=== PATIENT | female | born 1990 | race Two or more races ===

== ENCOUNTER 2017-06-15 09:34 | Emergency (ER) | payer OTHER ==
[2017-06-15 09:38] VITALS: BP 121/66; PULSE 85; TEMP 98; BMI 35.4
--- NOTE | 2017-06-15 10:42 | PDOC ---
History of Present Illness - General Chief Complaint: Pain Stated Complaint: SWOLLEN ANKLE Time Seen by Provider: 06/15/17 09:47 History Source: Patient Exam Limitations: No Limitations - History of Present Illness Initial Comments: 06/15/17 10:39 CHIEF COMPLAINT: Pain and swelling to plantar surface of left foot HISTORY OF PRESENT ILLNESS: Patient is a 26-year-old obese female, presents for evaluation of pain to plantar surface, near the heel of the left foot. Patient reports recently she started working out again. Noticeable swelling noted to plantar surface. Severity: Yes: moderate Lower Extremity Pain Location: left: foot Method of Injury: Yes: unknown Modifying Factors: improves with: cold therapy Lower Ext. Injury Location - Specific Injury Location Foot: left foot pain, left foot swelling (plantar surface of left foot) Extremity Pain Location - Extremity Pain Location Extremity Pain Locations: left: foot Past History - Past Medical History Allergies/Adverse Reactions: Allergies Allergy/AdvReac Type Severity Reaction Status Date / Time No Known Allergies Allergy Verified 06/15/17 09:38 Home Medications: Ambulatory Orders Ibuprofen [Motrin -] 600 mg PO TID #21 tablet 06/15/17 - Surgical History Abdominal Surgery: Yes (SLEEVE) - Psycho/Social/Smoking Cessation Hx Suicidal Ideation: No Smoking History: Never smoked Information on smoking cessation initiated: No Review of Systems - Review of Systems Constitutional: No: Symptoms Reported HEENTM: No: Symptoms Reported Respiratory: No: Symptoms reported Cardiac (ROS): No: Symptoms Reported ABD/GI: No: Symptoms Reported : No: Symptoms Reported Musculoskeletal: Yes: Other (swelling noted to plantar surface of left foot). No: Joint Pain, Joint Swelling, Joint Stiffness Integumentary: No: Bruising, Erythema Neurological: No: Symptoms reported, Paresthesia, Tingling, Tremors All Other Systems: Reviewed and Negative *Physical Exam - Vital Signs Last Vital Signs Temp Pulse Resp BP Pulse Ox 98 F 85 18 121/66 100 06/15/17 09:35 06/15/17 09:35 06/15/17 09:35 06/15/17 09:35 06/15/17 09:35 - Physical Exam General Appearance: Yes: Appropriately Dressed. No: Apparent Distress Respiratory/Chest: positive: Lungs Clear, Normal Breath Sounds Cardiovascular: positive: Regular Rhythm, Regular Rate Lymphatic: negative: Adenopathy Musculoskeletal: positive: Other (pain and swelling to the plantar surface of left foot, no erythema edema or bruising) Extremity: positive: Swelling, Inflammation (plantar surface of left foot). negative: Calf Tenderness, Erythema Integumentary: positive: Normal Color. negative: Erythema, Rash, Swelling, Ecchymosis, Bruising Neurologic: positive: Alert, Normal Mood/Affect ED Treatment Course - RADIOLOGY Radiology Studies Ordered: Category Date Time Status FOOT-LEFT [RAD] Stat Radiology 06/15/17 10:05 Ordered Medical Decision Making - Medical Decision Making 06/15/17 10:41 A/P: Patient with pain to the plantar surface of left foot. Highly suspicious for plantar fasciitis however will send patient for x-ray to rule out stress fracture. Urine sent 06/15/17 12:14 X-ray is negative for acute fracture, Sawyer wrap placed on, will DC patient home on anti-inflammatories, refrain from wearing flat shoes told patient she needs support to plantar surface. Follow-up with podiatry. *DC/Admit/Observation/Transfer Diagnosis at time of Disposition: Plantar fasciitis - Discharge Dispostion Disposition: HOME Condition at time of disposition: Good Admit: No - Prescriptions Prescriptions: Ibuprofen [Motrin -] 600 mg PO TID #21 tablet - Referrals Referrals: Rene Pepe MD [Staff Physician] - - Patient Instructions Printed Discharge Instructions: DI for Plantar Fasciitis Additional Instructions: Ice to bottom of foot Anti-inflammatories recommend follow-up with podiatry if pain persists in one week Refrain from wearing flat shoes or shoes with no arch support - Post Discharge Activity Work/School Note: Back to Work
== END 2017-06-15 12:21 | disposition home or self-care (01) ==
LOC: JERFT 09:34
DX: M72.2 Plantar fascial fibromatosis (principal)
CPT/HCPCS: 73630-TC-LT; 84703; 99281-25

== ENCOUNTER 2022-04-07 15:34 | Emergency (ER) | payer OTHER ==
[2022-04-07 16:08] VITALS: BP 134/79; PULSE 90; TEMP 98.3; BMI 42.5
[2022-04-07] MEDS ORDERED: IBUPROFEN 600 MG TABLET (FP) PO ONE ×2 (17:16→17:22)
== END 2022-04-07 18:43 | disposition home or self-care (01) ==
LOC: JER 15:34 → JERFT 15:34
DX: S93.492A Sprain of other ligament of left ankle, initial encounter (principal); X50.9XXA Other and unspecified overexertion or strenuous movements or postures, initial encounter
CPT/HCPCS: 73610-TC-LT-FY; 73630-TC-LT; 99283-25

== ENCOUNTER 2022-05-12 16:29 | Emergency (ER) | payer OTHER ==
[2022-05-12 17:02] VITALS: BMI 43.9
[2022-05-12] MEDS ORDERED: ACETAMINOPHEN 500 MG TABLET (FP) PO ONE (17:19)
[2022-05-12] MEDS ORDERED: KETOROLAC TROMETHAMINE 30 MG/1 ML VIAL IM ONE (17:19)
[2022-05-12] MEDS ORDERED: ACETAMINOPHEN 500 MG TABLET (FP) ONE (17:31)
[2022-05-12] MEDS ORDERED: KETOROLAC TROMETHAMINE 30 MG/1 ML VIAL ONE (17:31)
[2022-05-12 19:07] VITALS: BP 110/56; PULSE 87; TEMP 98.5
[2022-05-12 19:30] LABS: THROAT:GRP A STREP NOT DETECTED (NOTDETECTED)
== END 2022-05-12 19:38 | disposition home or self-care (01) ==
LOC: JER 16:29
PROC: 3E0233Z Introduction of Anti-inflammatory into Muscle, Percutaneous Approach (ICD-10-PCS; principal; 2022-05-12)
DX: J06.9 Acute upper respiratory infection, unspecified (principal); R50.9 Fever, unspecified
CPT/HCPCS: 0241U-QW; 87651; 99284-25

== ENCOUNTER 2022-07-05 09:04 | Emergency (ER) | payer OTHER ==
[2022-07-05 09:16] VITALS: BP 112/62; PULSE 94; RESP 18; TEMP 98.4; BMI 42.5
[2022-07-05] MEDS ORDERED: SODIUM CHLORIDE 1,000 ML IV STA (09:30)
[2022-07-05 10:31] LABS: BASO % 0.7 % (0-2.0); EOS % 1.2 % (0-4.5); HEMATOCRIT 35.1 % (32.4-45.2); HEMOGLOBIN 11.9 GM/dL (10.7-15.3); LYMPH % 17.7 % (8-40); MCH 30.4 pg (25.7-33.7); MCHC 33.8 g/dl (32.0-36.0); MEAN PLT VOLUME 8.8 fl (7.5-11.1); MONO % 5.2 % (3.8-10.2); NEUT % 75.2 % (42.8-82.8); PLATELET COUNT 267 10^3/uL (134-434); RDW 14.8 % (11.6-15.6); WHITE BLOOD COUNT 6.8 K/mm3 (4.0-10.0)
[2022-07-05 10:39] LABS: CALCIUM 8.8 mg/dL (8.5-10.1)
[2022-07-05 10:40] LABS: ALBUMIN 3.6 g/dl (3.4-5.0); BLOOD UREA NITROGEN 10.4 mg/dL (7-18)
[2022-07-05 10:43] LABS: CREATININE 0.6 mg/dL (0.55-1.3)
[2022-07-05 10:44] LABS: BILIRUBIN,TOTAL 0.8 mg/dL (0.2-1); TOT PROT 7.5 g/dl (6.4-8.2)
[2022-07-05 10:57] LABS: HCG,QUALITATIVE URINE Positive; PH,URINE 6.5 (5.0-8.0); URINE APPEARANCE CLEAR; URINE BILIRUBIN NEGATIVE (NEGATIVE); URINE COLOR YELLOW; URINE GLUCOSE (UA) NEGATIVE (NEGATIVE); URINE KETONE TRACE (NEGATIVE); URINE LEUK ESTERASE NEGATIVE (NEGATIVE); URINE NITRITE NEGATIVE (NEGATIVE); URINE PROTEIN NEGATIVE (NEGATIVE)
== END 2022-07-05 11:52 | disposition home or self-care (01) ==
LOC: JER 09:04 → JERFT 09:04
PROC: 3E0337Z Introduction of Electrolytic and Water Balance Substance into Peripheral Vein, Percutaneous Approach (ICD-10-PCS; principal; 2022-07-05)
DX: O26.851 Spotting complicating pregnancy, first trimester (principal); Z3A.08 8 weeks gestation of pregnancy
CPT/HCPCS: 36415; 76830-TC; 80053; 81003; 84702; 84703; 85025; 86850; 86900; 86901; 87086; 99284-25

== ENCOUNTER 2022-09-17 11:06 | Emergency (ER) | payer OTHER ==
[2022-09-17 11:28] VITALS: BP 117/65; PULSE 99; RESP 19; TEMP 98.5; BMI 42.5
== END 2022-09-17 13:57 | disposition home or self-care (01) ==
LOC: JER 11:06
DX: J06.9 Acute upper respiratory infection, unspecified (principal)
CPT/HCPCS: 0241U-QW; 87651; 99283-25

== ENCOUNTER 2023-09-25 20:41 | Emergency (ER) | payer OTHER ==
[2023-09-25 20:48] VITALS: BP 113/75; PULSE 91; RESP 20; TEMP 98.6; BMI 43.4
== END 2023-09-25 23:24 | disposition left against medical advice (07) ==
LOC: JER 20:41
DX: N93.9 Abnormal uterine and vaginal bleeding, unspecified (principal)
CPT/HCPCS: 99281-25

== ENCOUNTER 2023-12-21 04:34 | Day surgery (SDC) | payer OTHER ==
[2023-12-15 15:08] VITALS: BMI 42.5
[2023-12-21] MEDS ORDERED: ACETAMINOPHEN 500 MG TABLET (FP) PO PRN (11:43)
[2023-12-21 12:21] VITALS: RESP 18; TEMP 97.8
[2023-12-21] MEDS ORDERED: LIDOCAINE HCL 1% PRESERVATIVE FREE - 30ML VIAL IJ ONE (13:06)
[2023-12-21] MEDS ORDERED: BUPIVACAINE HCL/PF 0.75% 10 ML VIAL NR ONE (13:06)
[2023-12-21 13:51] VITALS: BP 113/77; PULSE 67
== END 2023-12-21 13:55 | disposition home or self-care (01) ==
LOC: JASU-SURG 04:34
PROVIDERS: ATTEND Pain Medicine Pain Medicine
PROC: 3E0T33Z Introduction of Anti-inflammatory into Peripheral Nerves and Plexi, Percutaneous Approach (ICD-10-PCS; 2023-12-21)
PROC: 3E0T3BZ Introduction of Anesthetic Agent into Peripheral Nerves and Plexi, Percutaneous Approach (ICD-10-PCS; principal; 2023-12-21 14:00)
DX: M47.816 Spondylosis without myelopathy or radiculopathy, lumbar region (principal)
CPT/HCPCS: 76000-TC-FY; 81025

== ENCOUNTER 2024-06-13 17:03 | Emergency (ER) | payer SELFPAY ==
[2024-06-13 17:25] VITALS: BP 121/78; PULSE 76; RESP 18; TEMP 98.2; BMI 42.5
== END 2024-06-13 19:16 | disposition home or self-care (01) ==
LOC: JER 17:03
DX: N93.9 Abnormal uterine and vaginal bleeding, unspecified (principal)
CPT/HCPCS: 99283-25

== ENCOUNTER 2025-08-20 23:53 | Emergency (ER) | payer OTHER ==
[2025-08-21] MEDS ORDERED: NEOMYCIN/POLYMYXN/HC OTIC SUSPENSION 10 ML BOTTLE ONE (00:35)
[2025-08-21] MEDS ORDERED: AZITHROMYCIN 500 MG TABLET ONE (00:35)
[2025-08-21] MEDS: NEOMYCIN/POLYMYXN/HC OTIC SOLUTION 10 ML BOTTLE AD STA (00:36)
[2025-08-21] MEDS: AZITHROMYCIN 500 MG TABLET PO ONE (00:36)
[2025-08-21 00:51] VITALS: BMI 43.9
[2025-08-21 01:14] VITALS: BP 125/75; RESP 17; TEMP 98.3
== END 2025-08-21 01:14 | disposition home or self-care (01) ==
LOC: FER 23:53
DX: H60.501 Unspecified acute noninfective otitis externa, right ear (principal); H66.93 Otitis media, unspecified, bilateral; H92.03 Otalgia, bilateral
CPT/HCPCS: 99283-25